=== PATIENT | male | born 1970 | race Caucasian/White ===

== ENCOUNTER 2016-12-30 13:34 | Inpatient (IN) | payer OTHER ==
[2016-12-30] MEDS ORDERED: ATIVAN IV STA (13:48)
[2016-12-30] MEDS ORDERED: ATIVAN IVP STA ×4 (13:52→17:00)
[2016-12-30 14:19] LABS: BASOPHILS % (AUTO) 0.1 % (0.0-3.0); HEMOGLOBIN 13.8 g/dl (14.0-18.0); IMMATURE GRANULOCYTE % (AUTO) 0.4 % (0.0-5.0); LYMPHOCYTES # (AUTO) 0.8 K/uL (0.60-3.4); LYMPHOCYTES % (AUTO) 10.2 (10.0-50.0); MEAN CORPUSCULAR HEMOGLOBIN 34.2 pg (27.0-31.0); MEAN CORPUSCULAR HGB CONC 36.3 (31.8-35.4); MEAN CORPUSCULAR VOLUME 94.3 fl (80.0-94.0); MONOCYTES # (AUTO) 0.6 K/uL (0.4-2.0); MONOCYTES % (AUTO) 8.1 (0-10); NEUTROPHILS % (AUTO) 81.2; PLATELET COUNT 187 10^3/uL (140-440); RED BLOOD COUNT 4.03 10^6/ul (4.70-6.10); WHITE BLOOD COUNT 7.43 K/ul (4.2-10.2)
[2016-12-30 14:43] LABS: ALBUMIN 4.3 g/dL (3.4-5.0); ALBUMIN/GLOBULIN RATIO 1.48; ANION GAP 19.7; BILIRUBIN,TOTAL 0.4 mg/dL (0.00-1.20); BUN/CREATININE RATIO 5.55; CALCIUM 9.8 mg/dL (8.2-10.2); CREATININE 0.72 mg/dL (0.60-1.10); POTASSIUM 3.7 mmol/L (3.5-5.1); TOTAL PROTEIN 7.2 g/dL (6.4-8.2)
[2016-12-30] MEDS ORDERED: HALDOL IM STA (15:26)
[2016-12-30] MEDS ORDERED: KEPPRA 1,000 MG in SODIUM CHLORIDE 100 ML IV STA (15:34)
--- NOTE | 2016-12-30 16:36 | ED.PDOC ---
General ED Provider: Dr. MICHELE CHAVIRA Chief Complaint: Seizure Stated Complaint: seizure Time Seen by Physician: 13:35 Mode of Arrival: Walk-In Information Source: Family, EMT Exam Limitations: No limitations Primary Care Provider: KOTA SCHOFIELD Nursing and Triage Documentation Reviewed and Agree: Yes Neurological Complaint Exam - Seizure Complaint/Exam Onset/Duration: prior to arrival arrived alert no focal weakness Symptoms Are: Resolved Episodes Lasting: Seconds Single or Multiple Episode: 2 episode today 2 last night Failed to Regain Consciousness: No Severity: Self-limited Location: All extremities Character: Tonic-clonic Aggravating: Reports: Medication non-compliance. Denies: Alcohol ingestion, Drug ingestion, Alcohol withdrawal, Drug withdrawal, Fever, Trauma, Sleep deprivation, Photic stimulation, Breath-holding Alleviating: Reports: Spontaneous resolution Associated Signs and Symptoms: Reports: Emotional distress. Denies: Anxiety, Impaired speech, Bladder incontinence, Bowel incontinence, Trauma, Illness, Vomiting, Lethargy, Apnea Related History: Reports: Similar episode SAH Risk Factors: Reports: None Meningitis Risk Factors: Reports: None SDH Risk Factors: Reports: Male Related Surgical History: Reports: None Carotid Bruit Present: No Cephalohematoma Present: No Tongue Bitten: No Neck Pain Present: No Glascow Coma Scale (see protocol): 15 Nystagmus Present: No Gag Reflex Present: Yes Speech: Present: Normal Findings Aphasia: Present: None Meningeal Signs Positive: No Focal Weakness: Present: None Focal Sensory Loss: Reports: None Gait: Unable (no copperative) Pronator Drift: Present: None Differential Diagnoses: Metabolic Disorder, New onset Seizure Disord. Review of Systems - Review Of Systems Constitutional: Reports: No symptoms Eyes: Reports: No symptoms Ears, Nose, Mouth, Throat: Reports: No symptoms Respiratory: Reports: No symptoms Cardiac: Reports: No symptoms GI: Reports: No symptoms : Reports: No symptoms Musculoskeletal: Reports: No symptoms Skin: Reports: No symptoms Neurological: Reports: No symptoms Endocrine: Reports: No symptoms Hematologic/Lymphatic: Reports: No symptoms All Other Systems: Reviewed and Negative Past Medical History - Past Medical History Previously Healthy: Yes Endocrine: Reports: None Cardiovascular: Reports: None Respiratory: Reports: None Hematological: Reports: None Gastrointestinal: Reports: None Genitourinary: Reports: None Neuro/Psych: Reports: Seizure Musculoskeletal: Reports: None Cancer: Reports: None - Surgical History General Surgical History: Reports: None - Family History Family History: Reports: None - Social History Smoking Status: Current every day smoker, Heavy tobacco smoker Hx Substance Use: Yes Alcohol Screening: None - Immunizations Tetanus Shot up to Date: No Physical Exam - Physical Exam Appearance: Well-appearing, No pain distress, Well-nourished Eyes: KATHI, EOMI, Conjunctiva clear ENT: Ears normal, Nose normal, Oropharynx normal Respiratory: Airway patent, Breath sounds clear, Breath sounds equal, Respirations nonlabored Cardiovascular: RRR, Pulses normal, No rub, No murmur GI/: Soft, Nontender, No masses, Bowel sounds normal, No Organomegaly Musculoskeletal: Normal strength, ROM intact, No edema, No calf tenderness Skin: Warm, Dry, Normal color Neurological: Sensation intact, Motor intact, Reflexes intact, Cranial nerves intact, Alert, Oriented Psychiatric: Affect appropriate, Mood appropriate Physician Notification - Case Discussed Physician Notified: viola Time of Notification: 16:38 (admitted pt not cooperative with sit (sits up) ) Critical Care Note - Critical Care Note Total Time (mins): 0 Course - Course Hematology/Chemistry: 12/30/16 14:10 12/30/16 14:10 Orders, Labs, Meds: Lab Review 12/30/16 14:10 WBC 7.43 RBC 4.03 L Hgb 13.8 L Hct 38.0 L MCV 94.3 H MCH 34.2 H MCHC 36.3 H RDW Coeff of [place] 12.5 Plt Count 187 Immature Gran % (Auto) 0.4 Neut % (Auto) 81.2 Lymph % (Auto) 10.2 Hodgeman % (Auto) 8.1 Eos % (Auto) 0.0 Baso % (Auto) 0.1 Immature Gran # (Auto) 0.0 Neut # 6.0 Lymph # 0.8 Hodgeman # 0.6 Eos # 0.0 Baso # 0.0 Sodium 133 L Potassium 3.7 Chloride 95 L Carbon Dioxide 22 Anion Gap 19.7 BUN 4 L Creatinine 0.72 Estimated GFR (MDRD) 117.00 BUN/Creatinine Ratio 5.55 Glucose 63 L Lactic Acid 15.1 Calcium 9.8 Total Bilirubin 0.40 AST 19 ALT 8 L Alkaline Phosphatase 57 Total Protein 7.2 Albumin 4.3 Globulin 2.9 Albumin/Globulin Ratio 1.48 Procalcitonin < 0.05 Orders Category Date Time Status ADMIT PATIENT INPATIENT .TO SCU (MONITORED BED) ADMISSION 12/30/16 16:31 Ordered EKG-(ED ONLY) Stat CARDIO 12/30/16 13:47 Completed ACTIVITY .Complete BR CARE 12/30/16 16:31 Ordered BLOOD GLUCOSE MONITORING ACCUCHECK Q6H CARE 12/30/16 16:31 Ordered TELEMETRY MONITORING TELE CARE 12/30/16 16:32 Ordered VITAL SIGNS Q8HR CARE 12/30/16 16:31 Ordered REGULAR DIET DIETARY 12/30/16 Dinner Ordered BLOOD CULTURE Stat LAB 12/30/16 14:10 Received CBC W/ AUTO DIFF DAILY@0600 LAB 12/31/16 06:00 Ordered CBC W/ AUTO DIFF DAILY@0600 LAB 01/01/17 06:00 Ordered CBC W/ AUTO DIFF DAILY@0600 LAB 01/02/17 06:00 Ordered CBC W/ AUTO DIFF DAILY@0600 LAB 01/03/17 06:00 Ordered CBC W/ AUTO DIFF DAILY@0600 LAB 01/04/17 06:00 Ordered CBC W/ AUTO DIFF DAILY@0600 LAB 01/05/17 06:00 Ordered CBC W/ AUTO DIFF DAILY@0600 LAB 01/06/17 06:00 Ordered CBC W/ AUTO DIFF DAILY@0600 LAB 01/07/17 06:00 Ordered CBC W/ AUTO DIFF DAILY@0600 LAB 01/08/17 06:00 Ordered CBC W/ AUTO DIFF DAILY@0600 LAB 01/09/17 06:00 Ordered CBC W/ AUTO DIFF DAILY@0600 LAB 01/10/17 06:00 Ordered CBC W/ AUTO DIFF DAILY@0600 LAB 01/11/17 06:00 Ordered CBC W/ AUTO DIFF DAILY@0600 LAB 01/12/17 06:00 Ordered CBC W/ AUTO DIFF DAILY@0600 LAB 01/13/17 06:00 Ordered CBC W/ AUTO DIFF DAILY@0600 LAB 01/14/17 06:00 Ordered CBC W/ AUTO DIFF DAILY@0600 LAB 01/15/17 06:00 Ordered CBC W/ AUTO DIFF DAILY@0600 LAB 01/16/17 06:00 Ordered CBC W/ AUTO DIFF DAILY@0600 LAB 01/17/17 06:00 Ordered CBC W/ AUTO DIFF DAILY@0600 LAB 01/18/17 06:00 Ordered CBC W/ AUTO DIFF DAILY@0600 LAB 01/19/17 06:00 Ordered CBC W/ AUTO DIFF Stat LAB 12/30/16 14:10 Completed COMPREHENSIVE METABOLIC PANEL DAILY@0600 LAB 12/31/16 06:00 Ordered COMPREHENSIVE METABOLIC PANEL DAILY@0600 LAB 01/01/17 06:00 Ordered COMPREHENSIVE METABOLIC PANEL DAILY@0600 LAB 01/02/17 06:00 Ordered COMPREHENSIVE METABOLIC PANEL DAILY@0600 LAB 01/03/17 06:00 Ordered COMPREHENSIVE METABOLIC PANEL DAILY@0600 LAB 01/04/17 06:00 Ordered COMPREHENSIVE METABOLIC PANEL DAILY@0600 LAB 01/05/17 06:00 Ordered COMPREHENSIVE METABOLIC PANEL DAILY@0600 LAB 01/06/17 06:00 Ordered COMPREHENSIVE METABOLIC PANEL DAILY@0600 LAB 01/07/17 06:00 Ordered COMPREHENSIVE METABOLIC PANEL DAILY@0600 LAB 01/08/17 06:00 Ordered COMPREHENSIVE METABOLIC PANEL DAILY@0600 LAB 01/09/17 06:00 Ordered COMPREHENSIVE METABOLIC PANEL DAILY@0600 LAB 01/10/17 06:00 Ordered COMPREHENSIVE METABOLIC PANEL DAILY@0600 LAB 01/11/17 06:00 Ordered COMPREHENSIVE METABOLIC PANEL DAILY@0600 LAB 01/12/17 06:00 Ordered COMPREHENSIVE METABOLIC PANEL DAILY@0600 LAB 01/13/17 06:00 Ordered COMPREHENSIVE METABOLIC PANEL DAILY@0600 LAB 01/14/17 06:00 Ordered COMPREHENSIVE METABOLIC PANEL DAILY@0600 LAB 01/15/17 06:00 Ordered COMPREHENSIVE METABOLIC PANEL DAILY@0600 LAB 01/16/17 06:00 Ordered COMPREHENSIVE METABOLIC PANEL DAILY@0600 LAB 01/17/17 06:00 Ordered COMPREHENSIVE METABOLIC PANEL DAILY@0600 LAB 01/18/17 06:00 Ordered COMPREHENSIVE METABOLIC PANEL DAILY@0600 LAB 01/19/17 06:00 Ordered COMPREHENSIVE METABOLIC PANEL Stat LAB 12/30/16 14:10 Completed LACTIC ACID Stat LAB 12/30/16 14:10 Completed PROCALCITONIN Stat LAB 12/30/16 14:10 Completed Divalproex Sodium [Depakote ER] MEDS 12/31/16 09:00 Ordered 1,000 mg PO DAILY Divalproex Sodium [Depakote ER] MEDS 12/31/16 09:00 Ordered 500 mg PO DAILY Haloperidol Lactate Inj [Haldol] MEDS 12/30/16 15:26 Discontinued 5 mg IM ONCE STA Lacosamide [Vimpat] MEDS 12/30/16 21:00 Ordered 100 mg PO BID Lacosamide [Vimpat] MEDS 12/30/16 21:00 Ordered 200 mg PO BID Levetiracetam MEDS 12/31/16 09:00 Ordered 2,000 mg PO DAILY Levetiracetam Inj [Keppra] 1,000 mg MEDS 12/30/16 15:34 Active 0.9 % Sodium Chloride [Sodium Chloride] 100 ml IV ONCE Lorazepam Inj [Ativan] MEDS 12/30/16 13:52 Discontinued 1 mg IVP ONCE STA Lorazepam Inj [Ativan] MEDS 12/30/16 15:02 Discontinued 1 mg IVP ONCE STA Lorazepam Inj [Ativan] MEDS 12/30/16 13:58 Discontinued 2 mg IVP ONCE STA Sodium Chloride 0.9% [Sodium Chloride] 1,000 ml MEDS 12/30/16 17:00 Ordered IV 75 mls/hr CT HEAD W/O CONTRAST Stat RADS 12/30/16 13:46 Ordered Medications Generic Name Dose Route Start Last Admin Trade Name Freq PRN Reason Stop Dose Admin Levetiracetam 1,000 mg/ Sodium 110 mls @ 100 mls/hr 12/30/16 15:34 12/30/16 15:47 Chloride IV 12/30/16 16:39 100 mls/hr ONCE STA Administration Sodium Chloride 1,000 mls @ 75 mls/hr 12/30/16 17:00 Sodium Chloride IV .[id number] CYNDY Discontinued Medications Generic Name Dose Route Start Last Admin Trade Name Freq PRN Reason Stop Dose Admin Haloperidol Lactate 5 mg 12/30/16 15:26 12/30/16 15:59 Haldol IM 12/30/16 15:27 5 mg ONCE STA Administration Lorazepam 1 mg 12/30/16 13:52 12/30/16 13:59 Ativan IVP 12/30/16 13:53 Not Given ONCE STA Lorazepam 2 mg 12/30/16 13:58 12/30/16 13:59 Ativan IVP 12/30/16 13:59 2 mg ONCE STA Administration Lorazepam 1 mg 12/30/16 15:02 12/30/16 15:10 Ativan IVP 12/30/16 15:03 1 mg ONCE STA Administration Vital Signs: Temp Pulse Resp BP Pulse Ox 12/30/16 13:35 97.8 F 102 H 20 122/74 94 L Departure - Departure Time of Disposition: 16:38 Disposition: ADMITTED INPATIENT Discharge Problem: Seizure Instructions: Recurrent Seizures in Adults (ED) Condition: Good Pt referred to PMD for follow-up: Yes (admitted ) Allergies/Adverse Reactions: Allergies Penicillins Adverse Reaction (Verified 12/30/16 15:01) phenytoin [From Dilantin] Adverse Reaction (Verified 12/30/16 15:01) Home Medications: Ambulatory Orders Divalproex Sodium [Depakote ER] 1,000 mg PO DAILY 12/30/16 Divalproex Sodium [Depakote ER] 500 mg PO DAILY 12/30/16 Lacosamide [Vimpat] 100 mg PO BID 12/30/16 Lacosamide [Vimpat] 200 mg PO BID 12/30/16 Levetiracetam [Keppra Xr] 2,000 mg PO DAILY 12/30/16
[2016-12-30] MEDS ORDERED: SODIUM CHLORIDE 1,000 ML IV STA (17:01)
--- NOTE | 2016-12-30 17:09 | CT ---
Exam: Head CT. Date: 12/30/2016. Comparison: 08/06/2009. HISTORY: Seizure. TECHNIQUE: Helical scan of the brain was performed. FINDINGS: The calvarium is intact. The paranasal sinuses and mastoid air cells are clear. The brainstem and cerebellum are within normal limits. No abnormal intra or extra-axial fluid, mass or mass effect is present. There is no midline shift or hydrocephalus. No large vessel infarct or hemorrhages identified. The chaudhari-white interface is maintained. Impression: No acute intracranial findings.
[2016-12-30 20:12] VITALS: BMI 16.3
[2016-12-30] MEDS: ATIVAN IVP PRN (20:37)
[2016-12-30] MEDS ORDERED: NON-FORMULARY MEDICATION (Lacosamide [Vimpat] 100 MG) PO SCH (21:00)
[2016-12-30] MEDS ORDERED: LACOSAMIDE 200 MG PO SCH ×2 (21:00)
[2016-12-30] MEDS: DEPAKOTE PO SCH ×2 (21:38→21:39)
[2016-12-30] MEDS: KEPPRA PO SCH (21:39)
[2016-12-30] MEDS: VIMPAT PO SCH (21:40)
[2016-12-31] MEDS: DEPAKOTE PO SCH ×5 (01:04→22:05)
[2016-12-31] MEDS: KEPPRA PO SCH ×3 (01:05→22:05)
[2016-12-31] MEDS: ATIVAN IVP PRN (01:06)
[2016-12-31 05:26] LABS: BASOPHILS % (AUTO) 0.4 % (0.0-3.0); IMMATURE GRANULOCYTE % (AUTO) 0.1 % (0.0-5.0); LYMPHOCYTES # (AUTO) 0.9 K/uL (0.60-3.4); LYMPHOCYTES % (AUTO) 12.4 (10.0-50.0); MEAN CORPUSCULAR HEMOGLOBIN 34.3 pg (27.0-31.0); MONOCYTES # (AUTO) 0.8 K/uL (0.4-2.0); MONOCYTES % (AUTO) 11.8 (0-10); NEUTROPHILS # (AUTO) 5.2 K/ul (2.0-6.9); NEUTROPHILS % (AUTO) 75.3; PLATELET COUNT 157 10^3/uL (140-440); RED BLOOD COUNT 4.08 10^6/ul (4.70-6.10); WHITE BLOOD COUNT 6.92 K/ul (4.2-10.2)
[2016-12-31 05:46] LABS: ALBUMIN 3.8 g/dL (3.4-5.0); ALBUMIN/GLOBULIN RATIO 1.27; ANION GAP 17.8; BILIRUBIN,TOTAL 0.49 mg/dL (0.00-1.20); BUN/CREATININE RATIO 11.11; CREATININE 0.54 mg/dL (0.60-1.10); POTASSIUM 3.8 mmol/L (3.5-5.1); TOTAL PROTEIN 6.8 g/dL (6.4-8.2)
[2016-12-31] MEDS: DEXTROSE 5%-NS IV SOLUTION 1,000 ML IV SCH ×2 (07:15→16:43)
[2016-12-31] MEDS: SODIUM CHLORIDE 1,000 ML IV SCH ×2 (08:15→08:18)
[2016-12-31] MEDS: VIMPAT PO SCH ×2 (08:17→22:05)
[2016-12-31] MEDS ORDERED: DIVALPROEX SODIUM 500 MG PO SCH (09:00)
[2016-12-31] MEDS ORDERED: DIVALPROEX SODIUM 1000 MG PO SCH (09:00)
[2016-12-31] MEDS ORDERED: LEVETIRACETAM 2000 MG PO SCH (09:00)
[2017-01-01] MEDS: DEXTROSE 5%-NS IV SOLUTION 1,000 ML IV SCH ×3 (03:00→22:32)
[2017-01-01 06:55] LABS: BASOPHILS % (AUTO) 0.2 % (0.0-3.0); EOSINOPHILS % (AUTO) 0.4 % (0.0-7.0); HEMATOCRIT 37.5 % (42.0-52.0); HEMOGLOBIN 13.4 g/dl (14.0-18.0); IMMATURE GRANULOCYTE % (AUTO) 0.6 % (0.0-5.0); LYMPHOCYTES # (AUTO) 1.2 K/uL (0.60-3.4); LYMPHOCYTES % (AUTO) 23.7 (10.0-50.0); MEAN CORPUSCULAR HEMOGLOBIN 34.7 pg (27.0-31.0); MEAN CORPUSCULAR HGB CONC 35.7 (31.8-35.4); MEAN CORPUSCULAR VOLUME 97.2 fl (80.0-94.0); MONOCYTES # (AUTO) 0.5 K/uL (0.4-2.0); MONOCYTES % (AUTO) 10.3 (0-10); NEUTROPHILS # (AUTO) 3.3 K/ul (2.0-6.9); NEUTROPHILS % (AUTO) 64.8; PLATELET COUNT 152 10^3/uL (140-440); RED BLOOD COUNT 3.86 10^6/ul (4.70-6.10); WHITE BLOOD COUNT 5.03 K/ul (4.2-10.2)
[2017-01-01 07:14] LABS: ALBUMIN 3.1 g/dL (3.4-5.0); ALBUMIN/GLOBULIN RATIO 1.19; ANION GAP 12.6; BILIRUBIN,TOTAL 0.33 mg/dL (0.00-1.20); BUN/CREATININE RATIO 7.24; CALCIUM 8.7 mg/dL (8.2-10.2); CREATININE 0.69 mg/dL (0.60-1.10); POTASSIUM 3.6 mmol/L (3.5-5.1); TOTAL PROTEIN 5.7 g/dL (6.4-8.2)
[2017-01-01] MEDS: DEPAKOTE PO SCH ×4 (10:06→20:07)
[2017-01-01] MEDS: VIMPAT PO SCH ×2 (10:06→20:06)
[2017-01-01] MEDS: KEPPRA PO SCH ×2 (10:07→20:06)
[2017-01-01 11:24] LABS: BILIRUBIN,URINE Negative (NEGATIVE); KETONES,URINE Trace (NEGATIVE); LEUKOCYTE ESTERASE ,URINE Negative (NEGATIVE); NITRITE,URINE Negative (NEGATIVE); PROTEIN,URINE Negative (NEGATIVE); URINE, BLOOD Negative (NEGATIVE)
[2017-01-01 11:25] LABS: ADD URINE MICROSCOPIC NO
[2017-01-01 11:36] LABS: COCAIN SCREEN,URINE NEGATIVE (NEGATIVE)
[2017-01-01] MEDS: ATIVAN IVP PRN (22:40)
[2017-01-02 04:59] LABS: BASOPHILS % (AUTO) 0.3 % (0.0-3.0); EOSINOPHILS % (AUTO) 0.8 % (0.0-7.0); HEMATOCRIT 32.3 % (42.0-52.0); HEMOGLOBIN 11.5 g/dl (14.0-18.0); IMMATURE GRANULOCYTE % (AUTO) 0.3 % (0.0-5.0); LYMPHOCYTES # (AUTO) 1.5 K/uL (0.60-3.4); LYMPHOCYTES % (AUTO) 38.8 (10.0-50.0); MEAN CORPUSCULAR HEMOGLOBIN 34.5 pg (27.0-31.0); MEAN CORPUSCULAR HGB CONC 35.6 (31.8-35.4); MONOCYTES # (AUTO) 0.4 K/uL (0.4-2.0); MONOCYTES % (AUTO) 10.6 (0-10); NEUTROPHILS % (AUTO) 49.2; PLATELET COUNT 133 10^3/uL (140-440); RED BLOOD COUNT 3.33 10^6/ul (4.70-6.10); WHITE BLOOD COUNT 3.97 K/ul (4.2-10.2)
[2017-01-02 05:25] LABS: ALBUMIN 2.6 g/dL (3.4-5.0); ALBUMIN/GLOBULIN RATIO 1.08; ANION GAP 14.4; BILIRUBIN,TOTAL 0.26 mg/dL (0.00-1.20); BUN/CREATININE RATIO 8.77; CALCIUM 8.2 mg/dL (8.2-10.2); CREATININE 0.57 mg/dL (0.60-1.10); POTASSIUM 3.4 mmol/L (3.5-5.1)
[2017-01-02] MEDS: DEXTROSE 5%-NS IV SOLUTION 1,000 ML IV SCH ×2 (08:12→20:13)
[2017-01-02] MEDS: DEPAKOTE PO SCH ×4 (09:22→21:33)
[2017-01-02] MEDS: KEPPRA PO SCH ×2 (09:22→21:33)
[2017-01-02] MEDS: VIMPAT PO SCH ×2 (09:23→21:33)
[2017-01-02] MEDS: ATIVAN IVP PRN (21:41)
[2017-01-03 05:13] LABS: BASOPHILS % (AUTO) 0.3 % (0.0-3.0); HEMATOCRIT 32.9 % (42.0-52.0); HEMOGLOBIN 11.6 g/dl (14.0-18.0); IMMATURE GRANULOCYTE % (AUTO) 0.3 % (0.0-5.0); LYMPHOCYTES # (AUTO) 1.3 K/uL (0.60-3.4); LYMPHOCYTES % (AUTO) 34.9 (10.0-50.0); MEAN CORPUSCULAR HEMOGLOBIN 33.8 pg (27.0-31.0); MEAN CORPUSCULAR HGB CONC 35.3 (31.8-35.4); MEAN CORPUSCULAR VOLUME 95.9 fl (80.0-94.0); MONOCYTES # (AUTO) 0.4 K/uL (0.4-2.0); MONOCYTES % (AUTO) 10.2 (0-10); NEUTROPHILS # (AUTO) 2.1 K/ul (2.0-6.9); NEUTROPHILS % (AUTO) 53.3; PLATELET COUNT 141 10^3/uL (140-440); RED BLOOD COUNT 3.43 10^6/ul (4.70-6.10); WHITE BLOOD COUNT 3.84 K/ul (4.2-10.2)
[2017-01-03 05:45] LABS: ALBUMIN 2.9 g/dL (3.4-5.0); ALBUMIN/GLOBULIN RATIO 1.16; ANION GAP 13.4; BILIRUBIN,TOTAL 0.28 mg/dL (0.00-1.20); BUN/CREATININE RATIO 6.06; CALCIUM 8.7 mg/dL (8.2-10.2); CREATININE 0.66 mg/dL (0.60-1.10); POTASSIUM 3.4 mmol/L (3.5-5.1); TOTAL PROTEIN 5.4 g/dL (6.4-8.2)
[2017-01-03] MEDS: DEXTROSE 5%-NS IV SOLUTION 1,000 ML IV SCH ×2 (07:25→21:38)
[2017-01-03] MEDS: DEPAKOTE PO SCH ×4 (09:20→20:29)
[2017-01-03] MEDS: KEPPRA PO SCH ×2 (09:20→20:28)
[2017-01-03] MEDS: VIMPAT PO SCH ×2 (09:20→20:28)
[2017-01-03] MEDS: LIBRIUM PO SCH ×2 (09:21→20:28)
--- NOTE | 2017-01-03 14:36 | HP ---
DATE OF SERVICE: 12/30/16 CHIEF COMPLAINT: Seizure disorder. HISTORY OF PRESENT ILLNESS: This is a 46-year-old male with chronic history of seizure for which he takes three different medications and has been seen by Dr. Villatoro at [facility]. He is subject of a magnet placement in the chest for control of seizure disorder. The patient was usually taken care of by his mother but she one month ago. Ever since, episodes of seizures and recurrence was getting worse. For the last couple of days, the patient ran out of medication Vimpat. Right now the patient is under the care of the patient's sister. As the patient's were uncontrolled, the patient was brought to the emergency room for evaluation. Dr. Roblero saw the patient, was given a dose of Vimpat, Ativan and Haldol, which did calm down the patient and there were no seizures. At that time , the patient was admitted to the hospital for the management. REVIEW OF SYSTEMS: CONSTITUTIONAL: Seizures, weakness, tiredness. No fever, no chills. HEENT: Normal. ENDOCRINE: No weight gain; no weight loss. CVS: No chest pain. No PND, no orthopnea. No shortness of breath. No PND, no orthopnea. RESPIRATORY: No cough, no congestion. No hemoptysis. GI: No nausea, no vomiting. No abdominal pain. No melena. : No hematuria. No polyuria. MUSCULOSKELETAL: No joint swelling. PSYCHIATRIC: Not anxious. No depression. No suicidal thoughts. No homicidal thoughts. SKIN: Intact, no open lesions. PAST MEDICAL HISTORY: 1. Seizure disorder, chronic 2. Unsteady gait 3. Depression/anxiety 4. History of substance use PAST SURGICAL HISTORY: 1. Vagus nerve stimulator with magnet PERSONAL HISTORY: Does not smoke or drink. Substance use. He lives with his sister now. FAMILY HISTORY: Atrial fibrillation and lung. MEDICATIONS: 1. Keppra 2,000 mg p.o. q.12hr 2. Depakote ER 1,250 mg p.o. q.12hr 3. Vimpat 200 mg p.o. b.i.d. ALLERGIES: PENICILLIN, PHENYTOIN PHYSICAL EXAMINATION: V/S: BP 122/74, respiratory rate 20, heart rate 102, temperature 97.8. Saturation 94% on room air. HEENT: Atraumatic, normocephalic. No scleral icterus. Pallor positive. Mucosa dry. NECK: Supple. No JVD, no bruit. No lymphadenopathy. No thyromegaly. HEART: S1, S2 normal. No murmur. No cyanosis or clubbing. No ascites. LUNGS: Clear to auscultation. No rales or rhonchi. ABDOMEN: Soft, nontender. Bowel sounds are active. No CVA tenderness. No rigidity or guarding. EXTREMITIES: No cyanosis, clubbing or pedal edema. MUSCULOSKELETAL: Normal joints, no swelling. NEUROLOGIC: The patient is a sick looking man lying in bed not responding to verbal or painful stimuli. The patient is under the influence of the Haldol. No seizures at the given time. SKIN: Intact; no open lesions. LYMPHATIC: No lymph nodes palpable. LABS: White count 7.43, hemoglobin 13.8, hematocrit 38.0, platelet count 187. Sodium 133, potassium 3.7, chloride 95, bicarb 22, BUN 4, creatinine 0.76. Glucose 63. Valproic acid level is 108. ASSESSMENT: 1. BREAKTHROUGH SEIZURES AND RECURRENT SEIZURES 2. HISTORY OF SEIZURE DISORDER WITH VAGUS NERVE STIMULATOR 3. HISTORY OF DEPRESSION AND SUBSTANCE USE PLAN: 1. Admit the patient to SCU. 2. Ativan 2 mg q.6hr p.r.n. 3. Continue home medications, Keppra and Depakote. 4. Aspiration precautions. 5. Fall precautions. 6. Neuro checks. 7. No diet until the patient is awake, alert. 8. IV fluids. 9. Will follow with the patient in daily rounds. TIME SPENT: MORE THAN 70 minutes MTDD
--- NOTE | 2017-01-03 14:39 | PN ---
DATE OF SERVICE: 12/31/16 SUBJECTIVE: The patient is admitted with seizures. All night the patient had 3 to 4 seizures , which resolved by themselves. Vimpat was not given as the hospital does not carry it. The patient is getting the Ativan, still sleeping, responds to the painful stimulus and goes back to sleep. REVIEW OF SYSTEMS: (The patient responds to painful stimuli and goes back to sleep) CONSTITUTIONAL: No fever, no chills. HEENT: Normal. ENDOCRINE: No weight gain, no weight loss. CVS: No angina symptoms. No CHF symptoms. No palpitations. No atypical chest pain for CAD. No shortness of breath. No PND, no orthopnea. RESPIRATORY: No cough, no hemoptysis. GI: No nausea, no vomiting. No abdominal pain. : No hematuria. No polyuria. MUSCULOSKELETAL:. No joint swelling. PSYCHIATRIC: Not anxious. No depression. No suicidal thoughts. No homicidal thoughts. SKIN: Intact. No rash. PHYSICAL EXAMINATION: V/S: BP 101/53, respiratory rate 18, heart rate 75, temperature 98.0. HEENT: Normocephalic, atraumatic. Mucosa .dry. Pallor positive. No icterus. NECK: Supple. No JVD, no carotid bruit. No lymphadenopathy. LUNGS: Clear to auscultation. No rales or rhonchi. HEART: S1, S2 normal. No S3. No murmur, gallop or regurgitation. ABDOMEN: Soft, nontender. Bowel sounds active. No rigidity. No rebound or guarding. No CVA tenderness. EXTREMITIES: No clubbing, cyanosis or pedal edema. MUSCULOSKELETAL: No joint swelling. NEUROLOGIC: Responds to painful stimuli and goes back to sleep. LYMPHATIC: No lymph nodes palpable. SKIN: Intact. LABS: White count 6.92, hemoglobin 14.0, hematocrit 40.0, platelet count 157. Sodium 134, potassium 3.8, chloride 101, bicarb 19, BUN 6, creatinine 0.54. ASSESSMENT: 1. RECURRENT BREAKTHROUGH SEIZURE 2. HYPOGLYCEMIA 3. DEPRESSION 4. VAGUS NERVE STIMULATOR PLAN: 1. Will start the patient on D5 NS. 2. Vimpat medication to be restarted. We discussed with the patient's sister and she is going to bring the medication. 3. Fall precautions. 4. Seizure precautions. 5. Aspiration precautions. TIME SPENT: More than 30 minutes MTDD
--- NOTE | 2017-01-03 14:53 | PN ---
DATE OF SERVICE: 01/01/17 SUBJECTIVE: The patient is more awake and alert. The patient's Vimpat has been started. No seizures. He is still feeling weak and tired but no more seizures today. REVIEW OF SYSTEMS: CONSTITUTIONAL: Weakness, tiredness. No fever, no chills. HEENT: Normal. ENDOCRINE: No weight gain, no weight loss. CVS: No angina symptoms. No CHF symptoms. No palpitations. No atypical chest pain for CAD. No shortness of breath. No PND, no orthopnea. RESPIRATORY: No cough, no hemoptysis. GI: No nausea, no vomiting. No abdominal pain. : No hematuria. No polyuria. MUSCULOSKELETAL:. No joint swelling. PSYCHIATRIC: Not anxious. No depression. No suicidal thoughts. No homicidal thoughts. SKIN: Intact. No rash. PHYSICAL EXAMINATION: V/S: BP 120/78, respiratory rate 18, heart rate 80, temperature 99.1, saturation 96. HEENT: Normocephalic, atraumatic. Mucosa dry. Pallor positive. No icterus. NECK: Supple. No JVD, no carotid bruit. No lymphadenopathy. LUNGS: Decreased entry. Clear to auscultation. No rales or rhonchi. HEART: S1, S2 normal. No S3. No murmur, gallop or regurgitation. ABDOMEN: Soft, nontender. Bowel sounds active. No rigidity. No rebound or guarding. No CVA tenderness. EXTREMITIES: No clubbing, cyanosis or pedal edema. MUSCULOSKELETAL: No joint swelling. NEUROLOGIC: Awake, alert, oriented times three. No focal deficit. LYMPHATIC: No lymph nodes palpable. SKIN: Intact. LABS: White count 5.03, hemoglobin 13.4, hematocrit 37.5, platelet count 152. Sodium 139, potassium 3.6, chloride 106, bicarb 24, BUN 5, creatinine 0.69. ASSESSMENT: 1. STATUS POST BREAKTHROUGH SEIZURE AND RECURRENT SEIZURES. 2. HISTORY OF SEIZURE DISORDER WITH VAGUS NERVE STIMULATOR PLACEMENT. 3. ANXIETY. 4. NICOTINE USE. 5. UNSTEADY ATAXIA. PLAN: 1. Continue Depakote 2. Vimpat 200 mg p.o. b.i.d. 3. Keppra 4. Ativan p.r.n. 5. Out of bed to chair 6. Fall precautions 7. Seizure precautions 8. Aspiration precautions TIME SPENT: More than 40 minutes MTDD
--- NOTE | 2017-01-03 15:01 | PN ---
DATE OF SERVICE: 01/02/17 SUBJECTIVE: Admitted with seizures. The patient has chronic history of complicated seizure disorder for which the patient had a vagal nerve stimulator implanted. As of now no seizures since two days ago. The patient's sister, who is taking care of him, is worried if she is going to take care of him or not. As the patient use to live with mother and mother recently one month ago, planning for long -term care. REVIEW OF SYSTEMS: CONSTITUTIONAL: No fever, no chills. HEENT: Normal. ENDOCRINE: No weight gain, no weight loss. CVS: No angina symptoms. No CHF symptoms. No palpitations. No atypical chest pain for CAD. No shortness of breath. No PND, no orthopnea. RESPIRATORY: No cough, no hemoptysis. GI: No nausea, no vomiting. No abdominal pain. : No hematuria. No polyuria. MUSCULOSKELETAL:. No joint swelling. PSYCHIATRIC: Not anxious. No depression. No suicidal thoughts. No homicidal thoughts. SKIN: Intact. No rash. PHYSICAL EXAMINATION: V/S: BP 106/72, respiratory rate 22, heart rate 76, temperature 98.3. HEENT: Normocephalic, atraumatic. Mucosa dry. NECK: Supple. No JVD, no carotid bruit. No lymphadenopathy. LUNGS: Clear to auscultation. No rales or rhonchi. HEART: S1, S2 normal. No S3. No murmur, gallop or regurgitation. ABDOMEN: Soft, nontender. Bowel sounds active. No rigidity. No rebound or guarding. No CVA tenderness. EXTREMITIES: No clubbing, cyanosis or pedal edema. MUSCULOSKELETAL: No joint swelling. NEUROLOGIC: Awake, alert, not completely oriented to time, place or person. No focal deficit. LYMPHATIC: No lymph nodes palpable. SKIN: Intact. LABS: White count 3.79, hemoglobin 11.5, hematocrit 32.3, platelet count 133. Sodium 142, potassium 3.4, chloride 107, bicarb 25, BUN 5, creatinine 0.57. ASSESSMENT: 1. BREAKTHROUGH SEIZURE, RECURRENT SEIZURES 2. STATUS POST HISTORY OF VAGUS NERVE STIMULATOR PLACEMENT 3. ANEMIA 4. ANXIETY PLAN: 1. Fall precautions 2. Seizure precautions 3. Possible evaluation for long-term care TIME SPENT: More than 35 minutes today [facility]
[2017-01-03] MEDS ORDERED: ATIVAN IM STA (16:03)
[2017-01-04] MEDS: DEXTROSE 5%-NS IV SOLUTION 1,000 ML IV SCH (03:22)
[2017-01-04 05:10] LABS: BASOPHILS % (AUTO) 0.2 % (0.0-3.0); EOSINOPHILS # (AUTO) 0.1 K/ul (0.0-0.7); EOSINOPHILS % (AUTO) 1.4 % (0.0-7.0); HEMATOCRIT 35.7 % (42.0-52.0); HEMOGLOBIN 12.7 g/dl (14.0-18.0); IMMATURE GRANULOCYTE % (AUTO) 0.2 % (0.0-5.0); LYMPHOCYTES # (AUTO) 1.8 K/uL (0.60-3.4); MEAN CORPUSCULAR HEMOGLOBIN 34.1 pg (27.0-31.0); MEAN CORPUSCULAR HGB CONC 35.6 (31.8-35.4); MONOCYTES # (AUTO) 0.4 K/uL (0.4-2.0); MONOCYTES % (AUTO) 8.8 (0-10); NEUTROPHILS % (AUTO) 47.4; PLATELET COUNT 168 10^3/uL (140-440); RED BLOOD COUNT 3.72 10^6/ul (4.70-6.10); WHITE BLOOD COUNT 4.21 K/ul (4.2-10.2)
[2017-01-04 05:42] LABS: ALBUMIN 3.2 g/dL (3.4-5.0); ALBUMIN/GLOBULIN RATIO 1.07; ANION GAP 15.9; BILIRUBIN,TOTAL 0.31 mg/dL (0.00-1.20); BUN/CREATININE RATIO 6.75; CALCIUM 9.3 mg/dL (8.2-10.2); CREATININE 0.74 mg/dL (0.60-1.10); POTASSIUM 3.9 mmol/L (3.5-5.1); TOTAL PROTEIN 6.2 g/dL (6.4-8.2)
[2017-01-04] MEDS: DEPAKOTE PO SCH ×4 (08:58→20:48)
[2017-01-04] MEDS: KEPPRA PO SCH ×2 (08:58→20:48)
[2017-01-04] MEDS: VIMPAT PO SCH ×2 (08:59→20:48)
[2017-01-04] MEDS: LIBRIUM PO SCH ×2 (09:02→20:48)
[2017-01-05 04:42] LABS: BASOPHILS % (AUTO) 0.4 % (0.0-3.0); EOSINOPHILS # (AUTO) 0.1 K/ul (0.0-0.7); EOSINOPHILS % (AUTO) 1.1 % (0.0-7.0); HEMOGLOBIN 13.1 g/dl (14.0-18.0); IMMATURE GRANULOCYTE % (AUTO) 0.4 % (0.0-5.0); LYMPHOCYTES # (AUTO) 2.1 K/uL (0.60-3.4); LYMPHOCYTES % (AUTO) 39.4 (10.0-50.0); MEAN CORPUSCULAR HEMOGLOBIN 34.1 pg (27.0-31.0); MEAN CORPUSCULAR HGB CONC 36.4 (31.8-35.4); MEAN CORPUSCULAR VOLUME 93.8 fl (80.0-94.0); MONOCYTES # (AUTO) 0.6 K/uL (0.4-2.0); MONOCYTES % (AUTO) 10.1 (0-10); NEUTROPHILS # (AUTO) 2.6 K/ul (2.0-6.9); NEUTROPHILS % (AUTO) 48.6; PLATELET COUNT 184 10^3/uL (140-440); RED BLOOD COUNT 3.84 10^6/ul (4.70-6.10); WHITE BLOOD COUNT 5.43 K/ul (4.2-10.2)
[2017-01-05 05:11] LABS: ALBUMIN 3.5 g/dL (3.4-5.0); ALBUMIN/GLOBULIN RATIO 1.09; ANION GAP 17.5; BILIRUBIN,TOTAL 0.42 mg/dL (0.00-1.20); BUN/CREATININE RATIO 8.21; CALCIUM 9.6 mg/dL (8.2-10.2); CREATININE 0.73 mg/dL (0.60-1.10); POTASSIUM 4.5 mmol/L (3.5-5.1); TOTAL PROTEIN 6.7 g/dL (6.4-8.2)
[2017-01-05 05:29] VITALS: BP 103/67; TEMP 96.8
[2017-01-05] MEDS: DEXTROSE 5%-NS IV SOLUTION 1,000 ML IV SCH (08:31)
[2017-01-05] MEDS ORDERED: ATIVAN ONE ×2 (08:59)
[2017-01-05] MEDS: DEPAKOTE PO SCH ×2 (09:01→09:15)
[2017-01-05] MEDS: KEPPRA PO SCH (09:01)
[2017-01-05] MEDS: LIBRIUM PO SCH (09:01)
[2017-01-05] MEDS ORDERED: ATIVAN PO STA (09:13)
[2017-01-05] MEDS: VIMPAT PO SCH ×2 (12:44→12:59)
--- NOTE | 2017-01-06 15:26 | PN ---
DATE OF SERVICE: 01/05/17 SUBJECTIVE: The patient was admitted with the seizure disorder. The problem is now the placement. The patient sister is not comfortable taking the patient home as patient has been having seizure. We are having difficult time to get the patient of the placement. REVIEW OF SYSTEMS: CONSTITUTIONAL: No fever, no chills. HEENT: Normal. ENDOCRINE: No weight gain, no weight loss. CVS: No angina symptoms. No CHF symptoms. No palpitations. No atypical chest pain for CAD. No shortness of breath. No PND, no orthopnea. RESPIRATORY: No cough, no hemoptysis. GI: No nausea, no vomiting. No abdominal pain. : No hematuria. No polyuria. MUSCULOSKELETAL:. No joint swelling. PSYCHIATRIC: Not anxious. No depression. No suicidal thoughts. No homicidal thoughts. SKIN: Intact. No rash. PHYSICAL EXAMINATION: GENERAL: The patient is upset, sitting there and wants to go home. V/S: Blood pressure 103/67, respiratory rate 18, heart rate 62 and temperature 96.8. HEENT: Normocephalic, atraumatic. Mucosa dry. Pallor positive. No icterus. NECK: Supple. No JVD, no carotid bruit. No lymphadenopathy. LUNGS: Clear to auscultation. No rales or rhonchi. HEART: S1, S2 normal. No S3. No murmur, gallop or regurgitation. ABDOMEN: Soft, nontender. Bowel sounds active. No rigidity. No rebound or guarding. No CVA tenderness. EXTREMITIES: No clubbing, cyanosis or pedal edema. MUSCULOSKELETAL: No joint swelling. NEUROLOGIC: Awake, alert, oriented times three. No focal deficit. LYMPHATIC: No lymph nodes palpable. SKIN: Intact. LABS: WBC 5.43, hgb 13.1, hct 36.0, plt count 184, sodium 131, potassium 4.5, chloride 94, bicarb 24, BUN 6, creatinine 0.73. ASSESSMENT: 1. Seizure disorder, break through seizures 2. Anxiety 3. History of vagus nerve stimulator replacement 4. Unsteady gait PLAN: 1. Continue the Depakote 2. Keppra 3. Vimpat 4. Fall precaution 5. Seizure precautions 6. Aspiration precautions. TIME SPENT: More than 30 minutes MTDD
--- NOTE | 2017-02-07 14:27 | PN ---
DATE OF SERVICE: 01/03/17 SUBJECTIVE: The patient was admitted with seizure disorder. The patient had increased seizure ever since the patient's mother passed and ran out of the medication Vimpat. Vimpat restarted in the hospital and no seizures after the admission. He is slow to react and answers very slowly. He is awake and alert. REVIEW OF SYSTEMS: CONSTITUTIONAL: No fever, no chills. HEENT: Normal. ENDOCRINE: No weight gain, no weight loss. CVS: No angina symptoms. No CHF symptoms. No palpitations. No atypical chest pain for CAD. No shortness of breath. No PND, no orthopnea. RESPIRATORY: No cough, no hemoptysis. GI: No nausea, no vomiting. No abdominal pain. : No hematuria. No polyuria. MUSCULOSKELETAL:. No joint swelling. PSYCHIATRIC: Not anxious. No depression. No suicidal thoughts. No homicidal thoughts. SKIN: Intact. No rash. PHYSICAL EXAMINATION: V/S: blood pressure 100/76, respiratory rate 20, heart rate 67, temperature 97.8 , saturation 99. HEENT: Normocephalic, atraumatic. Mucosa dry. Pallor positive. No icterus. NECK: Supple. No JVD, no carotid bruit. No lymphadenopathy. LUNGS: Decreased and clear to auscultation. No rales or rhonchi. HEART: S1, S2 normal. No S3. No murmur, gallop or regurgitation. ABDOMEN: Soft, nontender. Bowel sounds active. No rigidity. No rebound or guarding. No CVA tenderness. EXTREMITIES: No clubbing, cyanosis or pedal edema. MUSCULOSKELETAL: No joint swelling. NEUROLOGIC: Awake, alert, oriented times three. No focal deficit. LYMPHATIC: No lymph nodes palpable. SKIN: Intact. LABS: WBC 3.84, hgb 11.6, hct 32.9, plt count 141, sodium 138, potassium 3.4, chloride 101, bicarb 27, BUN 4, creatinine 0.66, glucose 89 ASSESSMENT: 1. Seizure disorder, out of medication 2. History of seizure disorder on Vimpat 3. History of tobacco use 4. Hypokalemia PLAN: 1. Continue Fluids 2. Ativan Q 2 PRN only for the seizure 3. Accu-checks at and HS with coverage 4. Continue the medication Vimpat 5. Still debating whether patient being discharged to home or with the sister because sister feels that patient is missing her mother more and being with her may put him in more danger but we are keep talking to the patient about the [facility] but so far he is refusing to go there. TIME SPENT: More than 35 minutes RENEE
--- NOTE | 2017-02-07 14:36 | PN ---
DATE OF SERVICE: 01/04/17 SUBJECTIVE: The patient was admitted with seizures and currently in the processes of whether to send the patient to the custodial or the assisted living facility. Trying to get the clear answers. The patient did have intentions to go home and tried to get out of the room a couple of times and I had to go and talk to the patient. Vimpat is really helping with the seizures and no more seizures. REVIEW OF SYSTEMS: CONSTITUTIONAL: No fever, no chills. HEENT: Normal. ENDOCRINE: No weight gain, no weight loss. CVS: No angina symptoms. No CHF symptoms. No palpitations. No atypical chest pain for CAD. No shortness of breath. No PND, no orthopnea. RESPIRATORY: No cough, no hemoptysis. GI: No nausea, no vomiting. No abdominal pain. : No hematuria. No polyuria. MUSCULOSKELETAL:. No joint swelling. PSYCHIATRIC: Not anxious. No depression. No suicidal thoughts. No homicidal thoughts. SKIN: Intact. No rash. PHYSICAL EXAMINATION: V/S: blood pressure 152/54, respiratory rate 18, heart rate 76, temperature 98. HEENT: Normocephalic, atraumatic. Mucosa dry. Pallor positive. No icterus. NECK: Supple. No JVD, no carotid bruit. No lymphadenopathy. LUNGS: Clear to auscultation. No rales or rhonchi. HEART: S1, S2 normal. No S3. No murmur, gallop or regurgitation. ABDOMEN: Soft, nontender. Bowel sounds active. No rigidity. No rebound or guarding. No CVA tenderness. EXTREMITIES: No clubbing, cyanosis or pedal edema. MUSCULOSKELETAL: No joint swelling. NEUROLOGIC: Awake, alert and slow to respond. No focal deficit. LYMPHATIC: No lymph nodes palpable. SKIN: Intact. LABS: WBC 4.21, hgb 12.7, hct 25.7, plt count 168, sodium 137, potassium 3.9, chloride 98, Bicarb 27, BUN 5, creatinine 0.74 and glucose 73. ASSESSMENT: 1. Seizure disorder 2. History of seizure disorder seen by Dr. Villatoro in the past 3. Tobacco use 4. Status post hypokalemia PLAN: 1. [facility] have refused to take the patient 2. We plan to see the admission criteria for the [facility] facility but the patient does not have any diagnosis of developmental delay. We will try to talk to the Baby Counselor, Audrey and the [facility]. Farhana Amezcua is talking to them for possible placement. TIME SPENT: More than 35 minutes RENEE
--- NOTE | 2017-02-07 14:59 | DS ---
DATE OF SERVICE: 01/05/17 FINAL DIAGNOSIS: 1. Seizure disorder, ran out of medication 2. History of seizure disorder, seen by Dr. Villatoro in the past 3. Status post Vagus nerve stimulatory with magnet 4. Ataxia 5. History of Depression but not on any medication at this time DISCHARGE INSTRUCTIONS: Discharge the patient home with family. Followup in the [facility] on January 12, 2017. MEDICATIONS AT DISCHARGE: Depakote 1,250mg PO Q 12 hour Vimpat 200mg PO twice day Keppra 200mg every 12 hours NEW PRESCRIPTIONS: None DIET INSTRUCTIONS: Healthy ACTIVITY: As much as tolerated. Strictly no driving. SMOKING: Current every day smoker DISEASE SPECIFIC EDUCATION: Seizure disorder Fall risk Head injuries but discussed with the family and patient multiple times. HOSPITAL COURSE: Laz Arshad who is a 46 year old male presented to the emergency room with having seizures and more frequent. The patient ran out of the medication Vimpat. History states back that patient's mother who used to lives with her recent times and ever since patient has been living with sister. The patient is having a lot of emotional problems because of that and missing mother. Seizure frequency was increased so the family kept giving the Vimpat and ran out of the medication. At that time the patient was brought to the emergency room and admitted to the hospital. The patient's CT scan was negative. Toxicology was positive for benzodiazepines. Valproic acid was 108. Mildly elevated levels. At that time he was admitted to the [facility] and being monitored. Restarted the Keppra and Divalproex and Vimpat script was given to the sister and she went and brought the medication. The patient was hypoglycemic. D5 was given and regular IV fluids. Librium was given for the anxiety issues. Hgb dropped to 11.6 and 12.7 but steady. The question came whether the patient can go to home or with the family but the sister was under impression that if the patient is with her then he may end up having more seizure as patient is new to the sister as he used to live with the mother but the patient is adamant about not going to the assisted. Meanwhile we did evaluate the patient for the [facility] and they did refuse him as patient does not have any diagnosis of developmental delay. The patient was not was able to the [employer]. The patient was convinced finally that he has to go to the sister's house for which he was OK with. He thinks that he can be fine there by himself with the sister's help. Promised that he is not going to go out of the house. During the hospital stay the patient behaved fine but he is awake and alert but he is slow to act and slow in his action otherwise no major changes. As patient was wanting to go home and we did not get him any placements the patient was discharged a long with the patient's sister with all the medication supply for one month and strictly advised to have followup in the [facility] within one week. TIME SPENT: MORE THAN 55 MINUTES RENEE
== END 2017-01-05 16:31 | disposition home or self-care (01) | DRG 101 ==
LOC: ED 13:34 → SCU 17:09
PROVIDERS: ADMIT Emergency Medicine; ATTEND Emergency Medicine
DX: G40.409 Other generalized epilepsy and epileptic syndromes, not intractable, without status epilepticus (principal); R27.0 Ataxia, unspecified; E16.2 Hypoglycemia, unspecified; F41.8 Other specified anxiety disorders; D64.9 Anemia, unspecified; E87.6 Hypokalemia; F17.200 Nicotine dependence, unspecified, uncomplicated; Z91.14 Patient's other noncompliance with medication regimen; Z96.9 Presence of functional implant, unspecified; Z79.899 Other long term (current) drug therapy; Z87.898 Personal history of other specified conditions; Z63.4 Disappearance and death of family member
CPT/HCPCS: 36415; 80053; 80164; 80306; 81001; 82962; 83605; 84145; 85025; 87040; 87081; 93005; 93010; 96365; 96375; 96376; 99285

== ENCOUNTER 2017-05-03 19:09 | Outpatient (CLI) | END 2017-05-03 19:10 | disposition short-term general hospital (02) | LOC: AMBL 19:09 | PROVIDERS: ATTEND Internal Medicine Geriatric Medicine | DX: R56.9 Unspecified convulsions (principal); R40.4 Transient alteration of awareness; R00.0 Tachycardia, unspecified; F20.0 Paranoid schizophrenia; R62.7 Adult failure to thrive ==